=== PATIENT | female | born 1975 | race Caucasian/White ===

== ENCOUNTER 2017-03-02 14:51 | Emergency (ER) | payer MEDICAID ==
[2017-03-02 17:17] LABS: URINE BLOOD (Dip) POC Negative (NEGATIVE); URINE GLUCOSE (Dip) POC Negative (NEGATIVE); URINE KETONES (Dip) POC Negative (NEGATIVE); URINE LEUKOCYTE EST (Dip) POC Negative (NEGATIVE); URINE NITRITE (Dip) POC Negative (NEGATIVE); URINE TOTAL PROTEIN POC Negative (NEGATIVE)
== END 2017-03-02 17:47 | disposition home or self-care (01) ==
LOC: FTE 14:51
DX: R10.11 Right upper quadrant pain (principal)
CPT/HCPCS: 81003; 99283